=== PATIENT | male | born 1935 | race Caucasian/White ===

== ENCOUNTER → 2017-06-25 | Outpatient (CLI) | payer MEDICARE ==
[~2017-06-25] MED LIST: ADJUSTABLE COMM1 MIS; ALLE10TA PO; AMLO2.5T PO; ASPI-110 PO; CHRO200T2 PO; COQ-100C5 PO; FOLI1TAB6 PO; LEVO112T2 PO; LOSA100T PO; MELO-1 PO; METH2.5T PO; MONT10TA4 PO; MULT-65 PO; VITA100022 PO; VITATAB56 PO; WALKER WHEELS/F1 MIS
[2017-06-25 10:44] LABS: HEMATOCRIT 42.5 % (39.0-51.0); MEAN CELL VOLUME 97.3 FL (80.0-100.0); MEAN CORPUSCULAR HEMOGLOBIN 32.9 PG (27.0-34.0); MEAN CORPUSCULAR HGB CONC 33.7 % (32.0-36.0); PLATELET COUNT 198 TH/MM3 (150-450); RED BLOOD COUNT 4.36 MIL/MM3 (4.50-5.90); RED CELL DISTRIBUTION WIDTH 13.9 % (11.6-17.2); REVIEW FLAG FINAL; WHITE BLOOD COUNT 5.8 TH/MM3 (4.0-11.0)
[2017-06-25 10:54] LABS: BLOOD, URINE NEG (NEG); COMMENT (UR) CULT NOT INDICATED; CULTURE IF INDICATED CULT NOT INDICATED; GLUCOSE,URINE NEG (NEG); KETONE, URINE NEG (NEG); MUCUS URINE FEW /lpf (OCC); NITRITE,URINE NEG (NEG); URINE COLOR YELLOW (YELLW/STRAW)
[2017-06-25 10:56] LABS: APTT (PATIENT) 26.5 SEC (24.3-30.1); PROTHROMBIN TIME - PATIENT 10.7 SEC (9.8-11.6)
[2017-06-25 11:22] LABS: ALT (GPT) 21 U/L (12-78); ANION GAP 4 MEQ/L (5-15); AST (GOT) 14 U/L (15-37); BICARBONATE 31.8 MEQ/L (21.0-32.0); BLOOD UREA NITROGEN 18 MG/DL (7-18); CHLORIDE 106 MEQ/L (98-107); GLOMERULAR FILTRATION RATE 89 ML/MIN (>89); GLUCOSE,FASTING 88 MG/DL (74-99); POTASSIUM 4.3 MEQ/L (3.5-5.1); SODIUM (NA) 142 MEQ/L (136-145)
[2017-06-25 11:24] LABS: ALKALINE PHOSPHATASE 71 U/L (45-117); TOTAL BILIRUBIN ADULT 0.7 MG/DL (0.2-1.0)
--- NOTE | 2017-06-25 13:19 | EKG ---
Date Performed: 06/25/2017 Time Performed: 10:22:48 PTAGE: 81 years EKG: SINUS BRADYCARDIA BORDERLINE ECG NO PREVIOUS TRACING DOCTOR: Rajesh Song Interpretating Date/Time 06/25/2017 13:17:20
== END ==
LOC: CPRE 10:00
PROVIDERS: ATTEND Surgery
DX: Z01.812 Encounter for preprocedural laboratory examination (principal); Z01.810 Encounter for preprocedural cardiovascular examination
CPT/HCPCS: 36415; 80053; 81001; 85027; 85610; 85730; 93005

== ENCOUNTER 2017-07-01 08:27 | Inpatient (IN) | payer MEDICARE ==
--- NOTE | 2017-06-27 16:49 | MH ---
cc: Suellen SANCHEZ M.D. DATE OF ADMISSION: 07/01/2017 ADMITTING DIAGNOSIS: Osteoarthritic degeneration left hip now being admitted for left total hip arthroplasty admission. HISTORY OF PRESENT ILLNESS: This pleasant 81-year male known rheumatoid arthritic is being admitted today for left total hip arthroplasty. PAST MEDICAL HISTORY: Other past history also has a leg length discrepancy right being shorter than the left which he has a shoe lift. He has hypertension Thyroid problems. CURRENT MEDICATIONS 1. Losartan 2. Amlodipine 3. Levothyroxine. 4. Methotrexate. 5. Folic acid. 6. Mobic which stopped before surgery. 7. Singulair. 8. Vitamins. PAST SURGERIES Include bilateral total knee arthroplasties 9 years ago. REVIEW OF SYSTEMS Noncontributory. FAMILY HISTORY Noncontributory. SOCIAL HISTORY: Does not smoke or drink, ALLERGIES NO KNOWN DRUG ALLERGIES PHYSICAL EXAMINATION IN GENERAL: We find a 81-year-old male well-developed, well-nourished alert and oriented x3 complaining of pain in his left hip. VITAL SIGNS: Blood pressure 126/70, pulse 65 regular, respirations 18, temperature 98.3, pulse oximetry 97% on room air. HEAD, EYES, EARS, NOSE, AND THROAT: Eyes Pupils equal, round, reactive to light and accommodation, extraocular muscles intact. Ears, nose, mouth clear. NECK: Supple. LUNGS: Clear HEART: Regular rate. ABDOMEN: Soft. Positive bowel sounds. nontender. EXTREMITIES: Feels left hip to be tender with decreased range of motion and shortening a left hip compared to the right. Neurovascularly to his toes. IMPRESSION Severe osteoarthritic degeneration left hip. PLAN Admission for left total hip arthroplasty today. The patient understands procedure well and risks involve wishes to proceed with surgery as soon as possible. He understands to use the Hibiclens scrub, Bactroban before surgery and plans on going home with home health care. He is given a prescription postoperative pain anticoagulation control in the office today. MD RAVI Kline/atiya /4:29 PM /4:35 PM
[~2017-07-01] VITALS: Ht 177.8 cm; Wt 77.3 kg
[~2017-07-01 08:27] MED LIST changes: -ADJUSTABLE COMM1 MIS; -WALKER WHEELS/F1 MIS
[2017-07-01] MEDS ORDERED: INSULIN HUMAN REGULAR 1,000 UNITS/10 ML VIAL SQ PRN (09:15)
[2017-07-01] MEDS ORDERED: METOPROLOL TARTRATE 25 MG TAB PO PRN (09:15)
[2017-07-01] MEDS ORDERED: SODIUM CHLORID 0.9% 500 ML IV PRN (09:15)
[2017-07-01] MEDS ORDERED: POVIDONE IODINE 5% (ANTISEPSIS KIT) 4 APPLICATIONS EACH NARE PRN (09:15)
[2017-07-01] MEDS ORDERED: CHLORHEXIDINE GLUCONATE 2 % 1 PACK (2 CLOTHS) TOPICAL PRN (09:15)
[2017-07-01] MEDS ORDERED: LACTATED RINGER'S 1000 ML IV PRN (09:15)
[2017-07-01] MEDS ORDERED: CHLORHEXIDINE GLUCONATE 4% SOLN 120 ML BTL TOPICAL SCH (10:00)
[2017-07-01] MEDS ORDERED: VANCOMYCIN 1000 MG/NS 250 ML (for <70 kg) IV SCH ×2 (10:00)
[2017-07-01] MEDS ORDERED: ceFAZolin 2 GM PREMIX 50 ML IV SCH (10:00)
[2017-07-01] MEDS ORDERED: ceFAZolin INJ 1,000 MG VIAL ONE (10:45)
[2017-07-01] MEDS ORDERED: EXPAREL PERI-ARTICULAR INJECTION (TOTAL VOL. 120 ML) P-ARTICULR SCH ×2 (11:00)
[2017-07-01] MEDS ORDERED: TRANEXAMIC ACID INJ 773 MG in SODIUM CHLORIDE 0.9% INJ 100 ML IV SCH ×3 (11:00→15:35)
[2017-07-01] MEDS ORDERED: DEXAMETHASONE SOD PHOS 20 MG/5 ML VIAL ONE (11:19)
[2017-07-01] MEDS ORDERED: DEXAMETHASONE SOD PHOS 20 MG/5 ML VIAL IV ONE (11:30)
--- NOTE | 2017-07-01 11:43 | HHI.FF ---
Face to Face Verification Diagnosis: (1) Status post total hip replacement, left Physical Therapy Gait training Hip: Total hip, Protocol: Left, Posterior hip precautions, Abduction pillow while in bed, Progress to weight bearing Canvas Knee Splint: When in bed & 2 pillows btw thighs Nursing RN: 3 days/week x 2 weeks Nursing: Other (vital signs) Dressing Changes: Do not change dressing I have seen patient Simón Dejesus on 07/01/17. My clinical findings support the need for the requested home health care services because: Limited ability to care for self High risk of falls I certify that my clinical findings support that this patient is homebound because: Unsteady gait/balance Suellen Macias MD Jul 01, 2017 11:43
[2017-07-01] MEDS ORDERED: oxyCODONE/ACETAMINOPHEN 5 MG/325 MG TAB PO PRN (11:45)
[2017-07-01] MEDS ORDERED: BISACODYL 10 MG SUPP RECTAL PRN (11:45)
[2017-07-01] MEDS ORDERED: MISCELLANEOUS NURSING INFORMATION XX PRN (11:45)
[2017-07-01] MEDS ORDERED: Post-op Orders (for Pharmacy) MISC XX ONE (11:45)
[2017-07-01] MEDS ORDERED: MAGNESIUM HYDROXIDE SUSP 30 ML CUP PO PRN (11:45)
[2017-07-01] MEDS ORDERED: NALOXONE HCL 0.4 MG/ML AMP IV PUSH PRN (11:45)
[2017-07-01] MEDS ORDERED: ADJUSTABLE COMM1 MIS (11:45)
[2017-07-01] MEDS ORDERED: LORATADINE 10 MG TAB PO PRN (11:45)
[2017-07-01] MEDS ORDERED: MORPHINE SULFATE 8 MG/ML INJ IV PUSH PRN (11:45)
[2017-07-01] MEDS ORDERED: SODIUM CHLORIDE 0.9% FLUSH 5 ML FLUSH IVF PRN (11:45)
[2017-07-01] MEDS ORDERED: ONDANSETRON HCL 4 MG/2 ML VIAL IVP PRN (11:45)
[2017-07-01] MEDS ORDERED: WALKER WHEELS/F1 MIS (11:45)
[2017-07-01] MEDS ORDERED: ACETAMINOPHEN 325 MG TAB PO PRN (11:45)
[2017-07-01] MEDS ORDERED: TRANEXAMIC ACID INJ 0 MG in SODIUM CHLORIDE 0.9% INJ 100 ML IV SCH (11:45)
[2017-07-01] MEDS ORDERED: HYDROmorphone HCL PF 2 MG/ML VIAL ONE (11:46)
[2017-07-01] MEDS ORDERED: ACETAMINOPHEN 1000 MG/100 ML 100 ML IV ONE (11:46)
[2017-07-01] MEDS ORDERED: GLYCOPYRROLATE 1 MG/5 ML SYRINGE IV PUSH ONE (12:00)
[2017-07-01] MEDS ORDERED: ONDANSETRON HCL 4 MG/2 ML VIAL IV PUSH ONE (12:00)
[2017-07-01] MEDS ORDERED: DEXAMETHASONE SOD PHOS 4 MG/ML VIAL IV ONE (12:00)
[2017-07-01] MEDS ORDERED: ePHEDrine/NS 25 MG/5 ML SYR IV ONE (12:00)
[2017-07-01] MEDS ORDERED: ROCURONIUM INJ 50 MG/5 ML SYRINGE IV PUSH ONE (12:00)
[2017-07-01] MEDS ORDERED: NEOSTIGMINE 3 MG/3 ML SYR IV ONE (12:00)
[2017-07-01] MEDS ORDERED: PROPOFOL 200 MG/20 ML AMP IV ONE (12:00)
[2017-07-01] MEDS ORDERED: LIDOCAINE HCL 1% PF 5 ML AMPULE OTHER ONE (12:00)
[2017-07-01] MEDS ORDERED: PILL SPLITTER OTHER PRN (12:15)
--- NOTE | 2017-07-01 14:52 | HHI.PR ---
Immediate Post Op Note Procedure Date: Jul 01, 2017 Pre Op Diagnosis: Osteoarthritic degeneration left hip Post Op Diagnosis: Osteoarthritic degeneration left hip Surgeon: Suellen Macias MD Vasc Tech(s): Suzanne NASH Procedure: Left Total hip Arthroplasty Complications: none Specimen(s) removed: none Estimated blood loss: 200 cc Anesthesia: General Drains: None IVF Urinary Output (mLs): 0 (o means) Tourniquet time (min at mmHg) none Patient to: PACU Patient Condition: Good Implant/Devices: SEE IMPLANT LOG (if applicable) Date/Time of Procedure: SEE SURGICAL CARE RECORD Suzanne Sen Jul 01, 2017 14:52
[2017-07-01] MEDS: LACTATED RINGER'S 1000 ML INJ 1,000 ML IV SCH (15:00)
[2017-07-01] MEDS ORDERED: *morphine SULFATE 8 MG/ML PERIprocedure ONLY ONE (15:24)
--- NOTE | 2017-07-01 16:05 | RADRPT ---
EXAM DATE/TIME: 07/01/2017 15:13 [place] COMPARISON: No previous studies available for comparison. INDICATIONS : Post operative left hip. MEDICAL HISTORY : None. SURGICAL HISTORY : None. ENCOUNTER: Initial ACUITY: 1 day PAIN SCORE: Non-responsive. LOCATION: Left hip. FINDINGS: The patient is post left hip arthroplasty. Orthopedic hardware is in excellent position. There is no evidence of complication. CONCLUSION: 1. Orthopedic hardware in excellent position. No acute abnormality. Trey Beck MD on July 01, 2017 at 16:03 Board Certified Radiologist. This report was verified electronically.
--- NOTE | 2017-07-01 16:20 | PD.CONS ---
HPI Service [facility] Hospitalists Consult Requested By Dr. Macias Reason for Consult Postoperative medical management Primary Care Physician Rolo Sanchez M.D. Diagnoses: History of Present Illness Patient's primary care provider Dr. Rolo Sanchez This is pleasant 81-year-old male patient with past medical history which includes osteoarthritis, hypertension, hypothyroidism, allergic rhinitis, CAD status post cardiac stent approximately 10 years ago and rheumatoid arthritis on methotrexate as outpatient. Patient underwent left total hip arthroplasty today with Dr. Macias. We have been consulted for assistance with medical management postoperatively. Patient seen in PACU appears to be in no acute distress offers no specific complaints at this time. Patient denies pain and shortness of breath chest pain nausea vomiting diarrhea constipation fevers or chills. Patient reports he is feeling well. Review of Systems Constitutional: DENIES: Fatigue, Fever, Chills Eyes: DENIES: Blurred vision, Diplopia, Vision loss Respiratory: DENIES: Cough, Sputum production, Shortness of breath Cardiovascular: DENIES: Chest pain, Palpitations, Dyspnea on Exertion Gastrointestinal: DENIES: Abdominal pain, Constipation, Diarrhea Neurologic: DENIES: Headache, Localized weakness, Speech Problems Psychiatric: DENIES: Anxiety, Confusion, Depression Past Family Social History Past Medical History Osteoarthritis, hypertension, hypothyroidism, allergic rhinitis, CAD status post cardiac stent approximately 10 years ago and rheumatoid arthritis on methotrexate as outpatient Past Surgical History Bilateral knee replacements Cardiac stent placed approximately 10 years ago Reported Medications Multi-Vitamin Daily (Multiple Vitamin) 1 Tab Tab 1 Tab PO DAILY Allergy Relief (Loratadine) 10 Mg Tab 10 Mg PO DAILY PRN Coq-10 Tr (Coenzyme Q10 (Ubidecarenone)) 100 Mg Cap 1 Cap PO DAILY Aspirin 81 (Aspirin) 81 Mg Tabdr 81 Mg PO DAILY Vitamin D-400 (Cholecalciferol) 400 Unit Tab 400 Units PO DAILY Vitamin B-12 ER (Cyanocobalamin) 1,000 Mcg Tab 1,000 Mcg PO HS Montelukast (Montelukast Sodium) 10 Mg Tab 10 Mg PO HS Meloxicam 15 Mg Tab 15 Mg PO DAILY- has been on hold for the past week Folic Acid 1 Mg Tablet 1 Tab PO DAILY Levothyroxine (Levothyroxine Sodium) 112 Mcg Tab 112 Mcg PO DAILY Amlodipine (Amlodipine Besylate) 2.5 Mg Tab 2.5 Mg PO DAILY Losartan (Losartan Potassium) 100 Mg Tab 100 Mg PO DAILY Allergies: Coded Allergies: zolpidem (Verified Adverse Reaction, Severe, HALLUCINATION, 07/01/17) Active Ordered Medications Current Medications Medications (Trade) Dose Ordered Sig/Emilie Route Start Time Stop Time Status Last Admin Lactated Ringer's 1,000 ml @ 30 mls/hr Q24H PRN IV 07/01/17 09:15 07/04/17 09:14 07/01/17 09:40 Sodium Chloride 500 ml @ 30 mls/hr [id number] PRN IV 07/01/17 09:15 07/04/17 09:14 (Lopressor) 25 mg SANITARIAN PRN PO 07/01/17 09:15 07/04/17 09:14 (Betadine 5% Antisepsis Kit) 1 applic SANITARIAN PRN EACH NARE 07/01/17 09:15 07/04/17 09:14 (Chlorhexidine 2% Cloth) 3 pack SANITARIAN PRN TOPICAL 07/01/17 09:15 07/04/17 09:14 07/01/17 09:30 (NovoLIN R INJ) See Protocol Table ... SANITARIAN PRN SQ 07/01/17 09:15 07/04/17 09:14 (Hibiclens 4% Top Soln) 1 applic ONCE TOPICAL 07/01/17 10:00 07/04/17 09:59 Cefazolin Sodium/ Dextrose 50 ml @ 100 mls/hr SANITARIAN IV 07/01/17 10:00 07/04/17 09:59 Vancomycin HCl 1000 mg/Sodium Chloride 250 ml @ 250 mls/hr SANITARIAN IV 07/01/17 10:00 07/04/17 09:59 07/01/17 10:05 Tranexamic Acid 773 mg/Sodium Chloride 107.73 ml @ 200 mls/ hr SANITARIAN IV 07/01/17 11:00 07/01/17 17:00 07/01/17 12:35 Bupivacaine Liposome 20 ml/ Sodium Chloride 120 ml @ 240 mls/hr ONCE P-ARTICULR 07/01/17 11:00 07/01/17 17:00 07/01/17 12:56 (Norvasc) 2.5 mg DAILY PO 07/02/17 09:00 (Ecotrin Ec) 81 mg DAILY PO 07/02/17 09:00 (Vitamin D3) 400 units DAILY PO 07/02/17 09:00 (Vitamin B12) 1,000 mcg HS PO 07/01/17 21:00 (Folate) 1 mg DAILY PO 07/02/17 09:00 (Synthroid) 112 mcg DAILY@0600 PO 07/02/17 06:00 (Claritin) 10 mg DAILY PRN PO 07/01/17 11:45 (Cozaar) 100 mg DAILY PO 07/02/17 09:00 (Singulair) 10 mg HS PO 07/01/17 21:00 Lactated Ringer's 1,000 ml @ 80 mls/hr [id number] IV 07/01/17 11:37 07/01/17 15:00 (NS Flush) 2 ml UNSCH PRN IVF 07/01/17 11:45 (NS Flush) 2 ml BID IVF 07/01/17 21:00 Cefazolin Sodium 1000 mg/Sodium Chloride 100 ml @ 200 mls/hr Q6H IV 07/01/17 20:00 07/02/17 08:29 Miscellaneous Information UNSCH PRN XX 07/01/17 11:45 (Morphine Inj) 5 mg Q3H PRN IV PUSH 07/01/17 11:45 (Percocet 5-325 Mg) 1 tab Q4H PRN PO 07/01/17 11:45 (Percocet 5-325 Mg) 2 tab Q4H PRN PO 07/01/17 11:45 (Tylenol) 650 mg Q6H PRN PO 07/01/17 11:45 (Theragran M Tab) 1 tab BID PO 07/02/17 21:00 08/31/17 20:59 (Zofran Inj) 4 mg Q6H PRN IVP 07/01/17 11:45 (Colace) 100 mg BID PO 07/02/17 21:00 (Restoril) 15 mg HS PRN PO 07/01/17 21:00 (Dulcolax Supp) 10 mg DAILY PRN RECTAL 07/01/17 11:45 (Milk Of Magnesia Liq) 30 ml DAILY PRN PO 07/01/17 11:45 (Narcan Inj) 0.4 mg UNSCH PRN IV PUSH 07/01/17 11:45 (Pill Splitter) 1 ea UNSCH PRN OTHER 07/01/17 12:15 (Eliquis) 2.5 mg BID PO 07/02/17 13:00 Tranexamic Acid 773 mg/Sodium Chloride 107.73 ml @ 200 mls/ hr SANITARIAN IV 07/01/17 15:35 07/01/17 15:40 Family History Reviewed and noncontributory Social History Patient is an avid golfer Denies EtOH use tobacco use or illicit drug use Physical Exam Vital Signs Vital Signs Date Time Temp Pulse Resp B/P (MAP) Pulse Ox O2 Delivery O2 Flow Rate FiO2 07/01/17 16:00 75 16 127/61 (83) 98 Nasal Cannula 2 07/01/17 15:45 97.5 73 15 131/62 (85) 98 Nasal Cannula 2 07/01/17 15:30 74 15 130/62 (84) 97 Nasal Cannula 2 07/01/17 15:15 76 15 132/64 (86) 100 Nasal Cannula 3 07/01/17 15:00 77 14 135/61 (85) 99 Nasal Cannula 3 07/01/17 14:50 97.8 76 12 136/60 (85) 97 Nasal Cannula 3 07/01/17 09:29 97.8 60 20 154/72 (99) 97 Physical Exam GENERAL: This is a well-nourished, well-developed patient in no apparent distress. SKIN: Postoperative dressing left hip and intact HEAD: Atraumatic. Normocephalic. No temporal or scalp tenderness. EYES: Extraocular motions intact. No scleral icterus. No injection or drainage. CARDIOVASCULAR: Regular rate and rhythm RESPIRATORY: Clear to auscultation. GASTROINTESTINAL: Abdomen soft, non-tender, nondistended. Hypoactive MUSCULOSKELETAL: Extremities without clubbing, cyanosis, or edema. No joint tenderness, effusion, or edema noted. No calf tenderness. Negative Homans sign bilaterally. NEUROLOGICAL: Awake and alert. Motor and sensory grossly within normal limits. Five out of 5 muscle strength in all muscle groups, with the exception of postoperative of left lower extremity. Able to wiggle toes bilaterally Normal speech. Assessment and Plan Problem List: (1) Osteoarthritis of left hip ICD Codes: M16.12 - Unilateral primary osteoarthritis, left hip Plan: Osteoarthritis Patient underwent left total hip arthroplasty 07/01/[address] Macias. We have been consulted for assistance with medical management postoperatively. Percocet by mouth as needed for pain Rheumatoid arthritis Methotrexate currently on hold Continue folic acid Given one time Decadron IV intraoperatively Hypothyroidism Continue home Synthroid Hypertension Continue home blood pressure medications which include Cozaar 100 mg by mouth daily and Norvasc 2.5mg PO daily Monitor trend DVT prophylaxis with SCDs and Eliquis (2) Rheumatoid arthritis ICD Codes: M06.9 - Rheumatoid arthritis, unspecified (3) Thyroid condition ICD Codes: E07.9 - Disorder of thyroid, unspecified (4) Hypertension ICD Codes: I10 - Essential (primary) hypertension Alison Vazquez Jul 01, 2017 16:20
[2017-07-01 20:10] VITALS: BP 142/66; PULSE 75; RESP 18; TEMP 97.7; O2SAT 98
[2017-07-01] MEDS ORDERED: MONTELUKAST SODIUM 10 MG TAB PO SCH (21:00)
[2017-07-01] MEDS ORDERED: SODIUM CHLORIDE 0.9% FLUSH 5 ML FLUSH IVF SCH (21:00)
[2017-07-01] MEDS ORDERED: TEMAZEPAM 15 MG CAP PO PRN (21:00)
[2017-07-01] MEDS ORDERED: CYANOCOBALAMIN 1,000 MCG TAB PO SCH (21:00)
[2017-07-01] MEDS: oxyCODONE/ACETAMINOPHEN 5 MG/325 MG TAB PO PRN (22:00)
[2017-07-01 22:03] VITALS: O2SAT 97
[2017-07-01] MEDS ORDERED: amLODIPine BESYLATE 5 MG TAB PO ONE (22:30)
[2017-07-01 23:30] VITALS: BP_SYST 146; BP_SYST 157; BP_DIAS 65; BP_DIAS 72; PULSE 60; PULSE 82; RESP 18; TEMP 96.7; TEMP 97; O2SAT 96; O2SAT 98
[2017-07-02] MEDS: LACTATED RINGER'S 1000 ML INJ 1,000 ML IV SCH ×2 (00:07→03:29)
[2017-07-02 04:05] VITALS: BP 118/56; PULSE 73; RESP 17; TEMP 98.5; O2SAT 95
[2017-07-02] MEDS: oxyCODONE/ACETAMINOPHEN 5 MG/325 MG TAB PO PRN ×2 (05:46→12:50)
[2017-07-02] MEDS ORDERED: LEVOTHYROXINE SODIUM 112 MCG TAB PO SCH (06:00)
[2017-07-02 08:00] VITALS: BP 135/63; PULSE 74; RESP 16; TEMP 97.2; O2SAT 97
[2017-07-02] MEDS ORDERED: FOLIC ACID 1 MG TAB PO SCH (09:00)
[2017-07-02] MEDS ORDERED: LOSARTAN 50 MG TAB PO SCH (09:00)
[2017-07-02] MEDS ORDERED: ASPIRIN EC 81 MG TABEC PO SCH (09:00)
[2017-07-02] MEDS ORDERED: NON-FORMULARY DRUG (Multiple Vitamin (Multi-Vitamin Daily) 1 TAB) PO SCH (09:00)
[2017-07-02] MEDS ORDERED: CHOLECALCIFEROL (VIT D3) 400 UNIT TAB PO SCH (09:00)
[2017-07-02] MEDS ORDERED: NON-FORMULARY DRUG (Coenzyme Q10 (Ubidecarenone) (Coq-10 Tr) 1 CAP) PO SCH (09:00)
[2017-07-02 09:23] LABS: HEMATOCRIT 36.8 % (39.0-51.0); REVIEW FLAG FINAL
--- NOTE | 2017-07-02 10:40 | PD.ORT.PN ---
Subjective Subjective Remarks pt comfortable with no complaints. Objective Vitals Vital Signs Date Time Temp Pulse Resp B/P (MAP) Pulse Ox O2 Delivery O2 Flow Rate FiO2 07/02/17 08:00 97.2 74 16 135/63 (87) 97 07/02/17 04:05 98.5 73 17 118/56 (76) 95 07/01/17 23:30 96.7 82 18 146/65 (92) 98 07/01/17 22:03 97 Nasal Cannula 4.00 07/01/17 20:10 97.7 75 18 142/66 (91) 98 07/01/17 19:45 70 14 142/65 (90) 97 Nasal Cannula 2 07/01/17 19:00 79 14 161/72 (101) 97 Nasal Cannula 2 07/01/17 17:45 69 16 98 Room Air 07/01/17 17:30 76 16 131/62 (85) 97 Room Air 07/01/17 17:00 71 16 120/57 (78) 96 Room Air 07/01/17 16:30 72 16 95/54 (68) 95 Room Air 07/01/17 16:00 75 16 127/61 (83) 98 Nasal Cannula 2 07/01/17 15:45 97.5 73 15 131/62 (85) 98 Nasal Cannula 2 07/01/17 15:30 74 15 130/62 (84) 97 Nasal Cannula 2 07/01/17 15:29 15 07/01/17 15:15 76 15 132/64 (86) 100 Nasal Cannula 3 07/01/17 15:00 77 14 135/61 (85) 99 Nasal Cannula 3 07/01/17 14:50 97.8 76 12 136/60 (85) 97 Nasal Cannula 3 I/O 07/01/17 07/01/17 07/01/17 07/02/17 07/02/17 07/02/17 07:00 15:00 23:00 07:00 15:00 23:00 Intake Total 1750 ml 907 ml 1000 ml 240 ml Output Total 400 ml 850 ml 1000 ml Balance 1350 ml 907 ml 150 ml -760 ml Intake Oral 480 ml 240 ml IV Total 1750 ml 427 ml 1000 ml Output Urine Total 850 ml 1000 ml Estimated Blood Loss 400 ml Bladder Scan Volume Amount 999 ml # Voids 0 # Bowel Movements 0 Result Diagram: 07/02/17 0811 Imaging Last 24 hours Impressions Hip X-Ray 07/01/17 1137 Signed Impressions: Service Date/Time: Saturday, July 01, 2017 15:13 - CONCLUSION: 1. Orthopedic hardware in excellent position. No acute abnormality. Trey Beck MD Objective Remarks Sitting up in chair. Walked down valerio today. NV intact. Has Heath cath at present. No calf tenderness. Assessment & Plan Ortho Post Op Day #: 1 Problem List: Assessment and Plan Home today if able to void after Heath removed. Suellen Macias MD Jul 02, 2017 10:39
--- NOTE | 2017-07-02 10:43 | HHI.DS ---
Discharge Summary Admission Date Jul 01, 2017 at 08:27 Discharge Date: Jul 02, 2017 Admitting Diagnosis Osteoarthritic degeneration left hip Diagnosis: (1) Status post total hip replacement, left Diagnosis: Principal ICD Codes: Z96.642 - Presence of left artificial hip joint Brief History This is a 81 year old male patient CBC/BMP: 07/02/17 0811 Significant Findings Laboratory Tests Test 07/02/17 08:11 Hemoglobin 12.4 GM/DL (13.0-17.0) Hematocrit 36.8 % (39.0-51.0) PE at Discharge Sitting up in chair. Walked down valerio today. NV intact. Has Heath cath at present. No calf tenderness. Hospital Course Patient underwent a left total hip arthroplasty on day of admission. He received a course of prophylactic IV antibiotics and within 23 hours started on anticoagulation therapy. He continued to improve tolerating food and fluids well. He did have a Heath catheter which was removed on day one and he was able to void thereafter. He can she needed with out of bed physical therapy ambulating well with his walker. He remained afebrile with stable vital signs and was discharged on the first postoperative day to home in good condition with instructions for home healthcare and physical therapy and follow-up appointment in the office. Pt Condition on Discharge: Good Discharge Disposition: Discharge to SNF Discharge Instructions Diet Instructions: As Tolerated, No Restrictions Activities You Can Perform: Full Weight Bearing, Shower Only-No Bath Activities to Avoid: Bathing, Driving Suellen Macias MD Jul 02, 2017 10:43
[2017-07-02 11:00] VITALS: O2SAT 97
[2017-07-02] MEDS ORDERED: TAMSULOSIN HCL 0.4 MG CAP PO ONE (11:30)
[2017-07-02 12:00] VITALS: BP 158/65; PULSE 81; RESP 16; TEMP 96.2; O2SAT 97
[2017-07-02] MEDS ORDERED: APIXABAN 2.5 MG TABLET PO SCH (13:00)
[2017-07-02] MEDS ORDERED: ENOXAPARIN SODIUM 30 MG/0.3 ML SYRINGE SQ SCH (14:00)
[2017-07-02] MEDS ORDERED: DOCUSATE SODIUM 100 MG CAP PO SCH (21:00)
[2017-07-02] MEDS ORDERED: MULTIVITAMINS/MINERALS THERAPEUTIC TAB PO SCH (21:00)
[2017-07-02] MEDS ORDERED: amLODIPine BESYLATE 5 MG TAB PO SCH (21:00)
--- NOTE | 2017-07-05 12:01 | MP ---
cc: Suellen MACIAS M.D. DATE OF SURGERY: 07/01/2017 PREOPERATIVE DIAGNOSIS Osteoarthritic degeneration, left hip. POSTOPERATIVE DIAGNOSIS Osteoarthritic degeneration, left hip. SURGERY PERFORMED Left total hip arthroplasty using Aesculap component, size 54 cup, 36 liner, 6.5 x 28-mm screw, 13 lateralized stem and a size 36 x -4 ceramic head. No cement utilized. SURGEON Dr. Macias. MINE CAR DISPATCHER SAAD Bentley ANESTHESIA General intubation. PROCEDURE: The patient was brought to the Operating Room, where after successful induction of spinal anesthesia was placed on the operating room table in the left lateral decubitus position. The left hip, thigh and leg were prepped and draped in the usual manner. A posterolateral approach was then utilized by making an incision over the proximal portion of the femur lateral aspect, carried across the greater trochanter, carried posterior in a curved incision toward the buttock. The incision was carried down through the subcutaneous tissue, through the fibers of the tensor fascia johnnie and gluteus marc to expose the greater trochanteric bursa. This was then removed by sharp and blunt dissection. The hip was then internally rotated to expose the insertions of the short external rotators of the hip and were incised at their insertion into the greater trochanter and reflected posterior to protect the sciatic nerve. These were held with a Charnley retractor to better visualize the hip joint. The capsule was identified and removed by sharp dissection. The hip was then dislocated by internal rotation and flexion of the hip. The femoral calcar was then measured using the trial components for the appropriate length cut of the neck using an oscillating saw. After the cut was made the head was removed. The acetabulum was then approached and measured, the acetabulum reamed with the acetabular reamers. Next, the femoral calcar was approached by first inserting a canal finder followed by rigid reamers, followed by a cookie-cutter to the appropriate size, in this case being a #15. The broach was left in place and a planer used to plane the calcar to a smooth finish. The broach was then removed. The trial components were then inserted into place, the hip reduced, found to track smoothly with no evidence of subluxation or dislocation. All trial components were removed. The wound was irrigated copiously with antibiotic solution and Water Pik. The actual components were then inserted and impacted into place using the aforementioned components. The hip was reduced, found to track smoothly with no evidence of subluxation or dislocation. The wound was irrigated copiously with antibiotic solution, meticulous hemostasis achieved. The capsule was then approximated using interrupted #1 Vicryl suture. The deep fascia was approximated using , the tensor fascia johnnie and gluteus marc were approximated with running #2 Quill after closing the capsule with #1 Vicryl interrupted suture, the subcutaneous tissue approximated using interrupted and running 2-0 and 3-0 Monocryl sutures. Steri-Strips, sterile dressing, knee immobilizer and abduction pillow brace. Estimated blood loss was 400 ccs. Sponge and suture count were correct. The patient tolerated the procedure well and left the Operating Room in satisfactory condition. 60 ccs of Exparel was used around the hip joint for extra pain control. SAAD Bentley was present during the entire procedure to include patient positioning and the procedure. The medical necessity of the nurse practitioner document control assistant was indicated in this case due to the surgical complexity of the case itself. During the surgical case the assistant professor surgical technology was working the back table while my assistant professor surgical technology RECEIVING INSPECTOR was directly assisting me. Sciatic nerve identified and protected throughout the procedure. J. MD RAVI Valdes/HERNESTOL /2:57 PM /11:57 AM
== END 2017-07-02 17:22 | disposition home health service (06) | DRG 470 ==
LOC: HSDI 08:27 → N06B 19:58
PROVIDERS: ADMIT Surgery; ATTEND Surgery
PROC: 0SRB04A Replacement of Left Hip Joint with Ceramic on Polyethylene Synthetic Substitute, Uncemented, Open Approach (ICD-10-PCS; principal; 2017-07-01 12:12)
DX: M16.12 Unilateral primary osteoarthritis, left hip (principal); M06.9 Rheumatoid arthritis, unspecified; I10 Essential (primary) hypertension; M21.70 Unequal limb length (acquired), unspecified site; E03.9 Hypothyroidism, unspecified; I25.10 Atherosclerotic heart disease of native coronary artery without angina pectoris; J30.9 Allergic rhinitis, unspecified; Z96.653 Presence of artificial knee joint, bilateral; Z79.899 Other long term (current) drug therapy; Z95.5 Presence of coronary angioplasty implant and graft
CPT/HCPCS: 73501; 85014; 85018; 86850; 86900; 86901; 94150; C1776; C9290; J0131; J0690; J1100; J1170; J2270; J2405; J2710; J3010; J3370; J7050; J7120; L1830